=== PATIENT | male | born 1970 ===

== ENCOUNTER 2020-10-22 16:00 | Outpatient (RCR) | payer OTHER | END 2020-11-19 16:29 | LOC: WSOT | DX: G56.03 Carpal tunnel syndrome, bilateral upper limbs (principal) ==

== ENCOUNTER 2020-11-27 15:30 | Outpatient (RCR) | payer OTHER | END 2020-11-27 16:30 | disposition home or self-care (01) | LOC: WSOT 15:30 | DX: G56.03 Carpal tunnel syndrome, bilateral upper limbs (principal) ==

== ENCOUNTER → 2021-05-03 | Outpatient (CLI) | payer OTHER | LOC: ZCOL.LAB 09:56 | DX: Z20.822 Contact with and (suspected) exposure to COVID-19 (principal) ==